=== PATIENT | female | born 2000 | race Caucasian/White ===

== ENCOUNTER 2021-07-13 11:43 | Emergency (ER) | payer OTHER ==
[~2021-07-13] VITALS: Ht 152.4 cm; Wt 47.7 kg
[2021-07-13 12:37] VITALS: BP 100/54
== END 2021-07-13 14:37 | disposition left against medical advice (07) ==
LOC: EMS 11:43
DX: Z20.822 Contact with and (suspected) exposure to COVID-19 (principal); Z53.21 Procedure and treatment not carried out due to patient leaving prior to being seen by health care provider